=== PATIENT | male | born 1990 | race African-American/Black ===

== ENCOUNTER 2020-03-23 15:14 | Emergency (ER) | payer SELFPAY ==
[2020-03-23] MEDS ORDERED: Ibuprofen 200 MG TAB ONE (17:41)
== END 2020-03-23 17:46 | disposition home or self-care (01) ==
LOC: ERS 15:14
DX: L03.011 Cellulitis of right finger (principal)
CPT/HCPCS: 10060

== ENCOUNTER 2021-03-03 00:27 | Emergency (ER) | payer OTHER, SELFPAY | END 2021-03-03 00:54 | disposition home or self-care (01) | LOC: ERS 00:27 | DX: F19.10 Other psychoactive substance abuse, uncomplicated (principal) | CPT/HCPCS: 99283 ==

== ENCOUNTER 2021-03-22 23:22 | Emergency (ER) | payer SELFPAY | END 2021-03-22 23:35 | LOC: ERS 23:22 | DX: R51.9 Headache, unspecified (principal); E11.9 Type 2 diabetes mellitus without complications; I10 Essential (primary) hypertension | CPT/HCPCS: 99284 ==